=== PATIENT | female | born 1960 | race Caucasian/White ===

== ENCOUNTER → 2016-12-28 | Outpatient (CLI) | payer OTHER ==
--- NOTE | 2016-12-28 10:16 | REP ---
Clinical: History of cardiac arrhythmia and dyspnea . Comparison: 04/26/2016 . Technique: PA and lateral. Findings: The mediastinum and cardiac silhouette are normal. The lung adam are clear and without acute consolidation, effusion, or pneumothorax. Minimal chronic changes to the left lower lobe remains stable. The skeletal structures are intact and normal. Impression: 1. No acute cardiopulmonary process. Signed by Bello Fishman MD 12/28/2016 10:07 A
== END ==
LOC: M RAD 09:35
PROVIDERS: ATTEND Nurse Practitioner Adult Health
DX: Z01.818 Encounter for other preprocedural examination (principal); I99.9 Unspecified disorder of circulatory system

== ENCOUNTER → 2017-05-25 | Outpatient (REF) ==
--- NOTE | 2017-05-25 10:07 | REP ---
LEFT KNEE SERIES: Six views. HISTORY: Degenerative disc disease. FINDINGS: Six views of the left knee demonstrate the patient is status post left knee arthroplasty. Prosthetic components appear well aligned with respect to each other and their [place] bones. There is some dystrophic calcification inferiorly adjacent to the lower pole of the patella. Bones joints and soft tissues are otherwise radiographically unremarkable. IMPRESSION: Status post left knee arthroplasty. Signed by Vimal Murry MD 05/25/2017 10:20 A
== END ==
LOC: M SMT 09:26
PROVIDERS: ATTEND Internal Medicine
DX: Z02.71 Encounter for disability determination (principal)